=== PATIENT | male | born 1960 | race Caucasian/White ===

== ENCOUNTER 2016-12-06 19:47 | Inpatient (IN) | payer OTHER ==
[~2016-12-06] VITALS: Ht 165.1 cm; Wt 86.7 kg
[2016-12-06 20:48] LABS: ADD SCAN DIFF NO
--- NOTE | 2016-12-06 20:48 | RADRPT ---
PROCEDURE: XR Chest. CLINICAL INDICATION: Shortness of breath. Cerebrovascular accident. TECHNIQUE: Single frontal view. COMPARISON: None. FINDINGS: The lungs are clear. The heart size is normal. There is no pleural effusion. There is no pneumothorax. IMPRESSION: 1. Normal chest radiograph. RPTAT: QQ .Hugo Donohue MD, MD Date Time Electronically viewed and signed by .Hugo Donohue MD, MD on 12/06/2016 20:48 .R/
[2016-12-06 20:50] LABS: BASOPHILS % 0.4 % (0.0-2.0); EOSINOPHILS % 10.6 % (0.0-7.0); HEMATOCRIT 42.6 % (42.0-52.0); HEMOGLOBIN 14.8 g/dl (14.0-18.0); LYMPHOCYTES # 3.3 10^3/ul (0.8-2.9); LYMPHOCYTES % 36.5 % (15.0-51.0); MEAN CORPUSCULAR HEMOGLOBIN 29.7 pg (29.0-33.0); MEAN CORPUSCULAR HGB CONC 34.7 g/dl (32.0-37.0); MEAN CORPUSCULAR VOLUME 85.5 fl (82.0-101.0); MEAN PLATELET VOLUME 10.6 fl (7.4-10.4); MONOCYTE # 0.6 10^3/ul (0.3-0.9); MONOCYTES % 6.8 % (0.0-11.0); NEUTROPHIL # 4.1 10^3/ul (1.6-7.5); NEUTROPHILS % 45.6 % (39.0-77.0); PLATELET COUNT 254 10^3/UL (140-415); RED BLOOD COUNT 4.98 10^6/ul (4.70-6.10); RED CELL DISTRIBUTION WIDTH 13.4 % (11.5-14.5)
[2016-12-06 20:59] LABS: POTASSIUM 3.1 mmol/L (3.5-5.1)
[2016-12-06 21:01] LABS: INR 0.94; PROTIME 12.6 Sec (12.2-14.2)
[2016-12-06 21:02] LABS: CREATININE 0.92 mg/dl (0.61-1.24); PARTIAL THROMBOPLASTIN TIME 25.8 Sec (25.0-35.0)
[2016-12-06] MEDS ORDERED: POTASSIUM CHLORIDE (SR) 20 MEQ TAB PO STA (21:12)
[2016-12-06 21:15] LABS: TROPONIN-I 0.018 ng/ml (0.00-0.12)
[2016-12-06] MEDS ORDERED: IODIXANOL LOCM 100 ML BTL ONE (21:19)
[2016-12-06] MEDS ORDERED: SOD CHLORIDE 0.9% 100 ML ONE (21:19)
[2016-12-06] MEDS ORDERED: SOD CHLORIDE 0.9% 1,000 ML IV ONE (21:28)
--- NOTE | 2016-12-06 21:52 | RADRPT ---
PROCEDURE: CT head, without contrast. CLINICAL INDICATION: Possible stroke. TECHNIQUE: Noncontrast CT examination of the head, with axial, sagittal and coronal reformatted im ages. Automated dose exposure control was employed. CTDI: 43.48 mGy and DLP: 720.23 mGy-cm. COMPARISON: None. FINDINGS: No acute hemorrhage. Subarachnoid spaces are substantially preserved and symmetric. Ventricles ar e unremarkable. Septum cava and vergae variants. No mass effect. Serna-white matter distinction is preserved without evident decreased attenuation t o suggest acute or recent infarct. Sinuses and osseous structures are unremarkable. IMPRESSION: No acute process in the head. RPTAT: UU Physician Rich Date Time Electronically viewed and signed by Physician Rich on 12/06/2016 21:52 RS/
--- NOTE | 2016-12-06 22:02 | ERA ---
ER Documentation Chief Complaint Date/Time DATE: 12/06/16 TIME: 21:54 Chief Complaint left sided numbness since 6 hours ago HPI 56-year-old male with a history of untreated hypertension and diabetes presenting with numbness in his right face, right upper extremity, and right lower extremity. He has some subjective weakness. His symptoms started around 2 PM. No difficulty speaking. No vision abnormalities. He denies fevers, chills, neck pain, neck stiffness, or recent illness. No chest pain, shortness of breath, abdominal pain, diaphoresis. ROS All systems reviewed and are negative except as per history of present illness. Medications Home Meds No Active Prescriptions or Reported Meds Allergies Allergies: Coded Allergies: No Known Allergy (Unverified , 12/06/16) PMhx/Soc History of Surgery: Yes (APPENDECTOMY) Hx Cardiac Disorders: Yes (HYPERTENSION) Hx Miscellaneous Medical Probl: Yes (Diabetes) Hx Alcohol Use: Yes (10 beers every weekend) Hx Substance Use: No Hx Tobacco Use: No Smoking Status: Never smoker FmHx Family History: No diabetes Physical Exam Vitals Vital Signs Date Time Temp Pulse Resp B/P Pulse Ox O2 Delivery O2 Flow Rate FiO2 12/06/16 22:16 81 18 174/118 100 Nasal Cannula 3.0 12/06/16 20:27 Nasal Cannula 3 12/06/16 20:06 98.6 93 20 216/129 98 Physical Exam Const: No apparent distress, well-appearing, nontoxic Head: Atraumatic Eyes: Normal Conjunctiva, PERRL, EOMI ENT: Normal External Ears, Nose and Mouth. Neck: Full range of motion..~ No meningismus. Resp: Clear to auscultation bilaterally Cardio: Regular rate and rhythm, no murmurs. 2+ pulses distally, equal bilaterally Abd: Soft, non tender, non distended. Normal bowel sounds Skin: No petechiae or rashes Back: No midline or flank tenderness Ext: No cyanosis, or edema Neuro: M/S: Alert and oriented Face: EOMI, face and pharynx with normal sensation and function Motor: Normal strength throughout Sensation: Decreased sensation in the right upper extremity, right face, right lower extremity to painful stimuli, intact to light touch Speech: Normal Cerebel: Normal coordination Normal gait Normal finger to nose DTR: 2+ and symmetric upper/lower extremities Psych: Normal Mood and Affect Result Diagram: 12/06/16201912/06/162019 Results 24 hrs Laboratory Tests Test 12/06/16 20:20 12/06/16 20:49 White Blood Count 9.010^3/ul Red Blood Count 4.9810^6/ul Hemoglobin 14.8g/dl Hematocrit 42.6% Mean Corpuscular Volume 85.5fl Mean Corpuscular Hemoglobin 29.7pg Mean Corpuscular Hemoglobin Concent 34.7g/dl Red Cell Distribution Width 13.4% Platelet Count 29210^3/UL Mean Platelet Volume 10.6fl Neutrophils % 45.6% Lymphocytes % 36.5% Monocytes % 6.8% Eosinophils % 10.6% Basophils % 0.4% Nucleated Red Blood Cells % 0.0/100WBC Neutrophils # 4.110^3/ul Lymphocytes # 3.310^3/ul Monocytes # 0.610^3/ul Eosinophils # 1.010^3/ul Basophils # 0.010^3/ul Nucleated Red Blood Cells # 0.010^3/ul Prothrombin Time 12.6Sec Prothrombin Time Ratio 1.0 INR International Normalized Ratio 0.94 Activated Partial Thromboplast Time 25.8Sec Sodium Level 141mmol/L Potassium Level 3.1mmol/L Chloride Level 102mmol/L Carbon Dioxide Level 28mmol/L Anion Gap 14 Blood Urea Nitrogen 10mg/dl Creatinine 0.92mg/dl Glucose Level 283mg/dl Calcium Level 9.0mg/dl Troponin I 0.018ng/ml Bedside Glucose 235mg/dL Current Medications Medications (Trade) Dose Ordered Sig/Chelsey Route PRN Reason Start Time Stop Time Status Last Admin Dose Admin IV Flush 10 ml 10 ml STK-MED ONCE .ROUTE 12/06/16 21:19 12/06/16 21:20 DC Sodium Chloride (NS) 100 ml @ ud STK-MED ONCE .ROUTE 12/06/16 21:19 12/06/16 21:20 DC Iodixanol (Visipaque Locm) 100 ml STK-MED ONCE .ROUTE 12/06/16 21:19 12/06/16 21:20 DC Potassium Chloride 40 meq 40 meq ONCE STAT PO 12/06/16 21:12 12/06/16 21:22 DC 12/06/16 21:41 Sodium Chloride (NS) 1,000 ml @ 1,000 mls/hr Q1H ONCE IV 12/06/16 21:28 12/06/16 22:27 DC 12/06/16 21:42 Ondansetron HCl (Zofran Inj) 4 mg ER BRIDGE PRN IV NAUSEA AND/OR VOMITING 12/06/16 22:30 12/07/16 22:29 Acetaminophen (Tylenol Tab) 650 mg ER BRIDGE PRN PO MILD PAIN/FEVER 12/06/16 22:30 12/07/16 22:29 Procedures/MDM EMERGENT LABS AND DIAGNOSTIC STUDIES: Lab Results above were reviewed and interpreted by me. Labs showed hyperglycemia and hypokalemia 12-lead EKG #1 was interpreted by Catalino Hurt MD: Normal sinus rhythm at 98 bpm Left axis deviation Lateral T-wave abnormality, nonspecific QTC 464 No arrhythmia or evidence of STEMI. Lateral T-wave changes may be secondary to ischemia, but they are nonspecific 12-lead EKG #2 was interpreted by Catalino Hurt MD: Normal sinus rhythm Left axis deviation Lateral T-wave abnormality, nonspecific No arrhythmia or evidence of STEMI. Lateral T-wave changes may be secondary to ischemia, but they are nonspecific Radiology Results as interpreted by Radiology below were reviewed by Denny Hurt MD: Chest x-ray: No acute abnormalities CT brain:No acute process in the head. CTA Brain/Neck: No acute abnormalities per radiology Initial Nursing notes reviewed. Previous Medical Records requested via the Electronic Health Record. EMERGENCY DEPARTMENT COURSE / MEDICAL DECISION MAKING: Patient's neurologic symptoms are concerning for acute TIA/stroke, infectious, or metabolic cause and will require inpatient workup and continuous monitoring. I have a low suspicion for large vessel occlusion. He is not a TPA candidate. There is no evidence of intracranial hemorrhage. I do not suspect aortic or carotid dissection. His blood pressure is elevated but there is no evidence of hypertensive emergency. Further w/u for will be deferred to the inpatient team. Neuro Critical Care: Critical Care Time: 30 minutes Treatments/Evaluations: Continuous neurologic and cardiovascular monitoring for deterioration of neurologic function and complications, while obtaining immediate neurologic imaging. Considerations made for TPA and invasive therapy with discussions with family. TPA Criteria Assessment: Patient is not a TPA candidate because: Last known normal > 3 hours Accepting Care Team: Current data and ongoing care discussed. Time: Time of admission Primary Provider: Carrillo Consulting: none Outstanding Data: none Departure Diagnosis: Primary Impression: Paresthesia of right upper extremity Additional Impressions: Right leg paresthesias Hypertension Qualified Code: I15.9 - Secondary hypertension Hyperglycemia due to type 2 diabetes mellitus Qualified Code: E11.65 - Type 2 diabetes mellitus with hyperglycemia, without long-term current use of insulin Hypokalemia Condition: Serious MARIA HURT MD Dec 06, 2016 22:02
--- NOTE | 2016-12-06 22:13 | RADRPT ---
PROCEDURE: CTA head and neck. CLINICAL INDICATION: Focal neurologic deficit. TECHNIQUE: Direct spiral 0.63 mm axial sections were obtained through the cervical and intracrania l vasculature with the use of 100 cc of Visipaque 320 nonionic intravenous contrast material. Axial MIP, coronal, and sagittal reformations were obtained. The images were reviewed on a PACS workstati on. CTDIvol: 74.25, 18.64 mGy. DLP: 734.14 mGy-cm. COMPARISON: Brain CT performed earlier on the same date. FINDINGS: CTA neck: The right brachiocephalic and left common carotid arteries share a common origin of the ao rtic arch, a normal anatomic variant. The bilateral cervical carotid and vertebral arteries are wid logan patent. The left vertebral artery is dominant. No dissection or aneurysm is identified. CTA head: The bilateral ICAs, bilateral ACAs, bilateral MCAs, and left VARNISH DIPPER are widely patent. Mild focal narrowing of the left P2 segment is noted. The vertebrobasilar system is patent. The visuali zed cerebellar arteries are unremarkable. No intracranial aneurysm or vascular malformation is seen . IMPRESSION: 1. No significant stenosis or occlusion of the major cervical and intracranial arteries. 2. No dissection, aneurysm, or vascular malformation. Measurements of cervical internal carotid artery stenosis were performed according to NASCET criteri a, with reference to distal ICA diameter. Critical Results were called to Dr. Hurt at 10:08 p.m. on 12/06/2016. RPTAT: HTAR .Bashir Nevarez MD, Date Time Electronically viewed and signed by .Bashir Nevarez MD, MD on 12/06/2016 22:13 .R/
[2016-12-06] MEDS ORDERED: ONDANSETRON 4 MG INJ IV PRN (22:30)
[2016-12-06] MEDS ORDERED: ACETAMINOPHEN 325 MG TAB PO PRN (22:30)
[2016-12-06 23:25] VITALS: TEMP 98.6
[2016-12-06 23:35] VITALS: BP 193/115; PULSE 79; RESP 20; Ht 165.1 cm; Wt 86.7 kg
[2016-12-07] VITALS (10 sets, daily range): BP systolic 179–195; BP diastolic 111–114; PULSE 66–76; RESP 18–20
[2016-12-07] MEDS ORDERED: ONDANSETRON 4 MG INJ IV PRN (01:00)
[2016-12-07] MEDS ORDERED: ACETAMINOPHEN 325 MG TAB PO PRN (01:00)
[2016-12-07] MEDS ORDERED: INSULIN ASPART [NOVOLOG] 3 ML PEN SC ONE (01:30)
[2016-12-07] MEDS ORDERED: GLUCAGON 1 MG INJ IM PRN (01:30)
[2016-12-07] MEDS ORDERED: GLUCOSE GEL 15 GRAM TUBE PO PRN ×2 (01:30)
[2016-12-07] MEDS ORDERED: GLUCOSE GEL 15 GRAM TUBE BUCCAL PRN (01:30)
[2016-12-07] MEDS ORDERED: DEXTROSE 50% 50 ML SYRINGE IV PRN ×2 (01:30)
[2016-12-07] MEDS: ACCU-CHEK XX SCH (02:00)
[2016-12-07 07:44] LABS: ADD SCAN DIFF NO
[2016-12-07 07:51] LABS: BASOPHILS % 0.4 % (0.0-2.0); EOSINOPHILS # 1.3 10^3/ul (0.0-0.5); EOSINOPHILS % 14.1 % (0.0-7.0); HEMATOCRIT 41.2 % (42.0-52.0); LYMPHOCYTES # 2.4 10^3/ul (0.8-2.9); LYMPHOCYTES % 24.9 % (15.0-51.0); MEAN CORPUSCULAR HEMOGLOBIN 29.4 pg (29.0-33.0); MEAN CORPUSCULAR VOLUME 86.6 fl (82.0-101.0); MEAN PLATELET VOLUME 10.2 fl (7.4-10.4); MONOCYTE # 0.6 10^3/ul (0.3-0.9); MONOCYTES % 6.4 % (0.0-11.0); NEUTROPHIL # 5.1 10^3/ul (1.6-7.5); NEUTROPHILS % 53.9 % (39.0-77.0); PLATELET COUNT 235 10^3/UL (140-415); RED BLOOD COUNT 4.76 10^6/ul (4.70-6.10); RED CELL DISTRIBUTION WIDTH 13.4 % (11.5-14.5); WHITE BLOOD COUNT 9.5 10^3/ul (4.8-10.8)
[2016-12-07 08:16] LABS: ALBUMIN 3.5 g/dl (3.3-4.9)
[2016-12-07 08:17] LABS: POTASSIUM 3.4 mmol/L (3.5-5.1)
[2016-12-07 08:19] LABS: BILIRUBIN,INDIRECT 0.6 mg/dl (0-1.1); BILIRUBIN,TOTAL 0.6 mg/dl (0.2-1.3); CREATININE 0.71 mg/dl (0.61-1.24)
[2016-12-07 08:20] LABS: ALBUMIN/GLOBULIN RATIO 1.16; CALCIUM 8.5 mg/dl (8.4-10.2); TOTAL PROTEIN 6.5 g/dl (6.1-8.1)
[2016-12-07] MEDS: ASPIRIN (EC) 81 MG TAB PO SCH (08:27)
[2016-12-07] MEDS: ENOXAPARIN 40 MG/0.4 ML SYG SC SCH (08:28)
[2016-12-07] MEDS: INSULIN ASPART [NOVOLOG] 3 ML PEN SC SCH ×4 (08:29→20:24)
--- NOTE | 2016-12-07 11:16 | HP ---
Date/Time of Note Date/Time of Note DATE: 12/07/16 TIME: 11:08 Assessment/Plan VTE Prophylaxis VTE Prophylaxis Intervention: heparin Lines/Catheters IV [facility]ter Type (from [facility]): [facility] Urinary Cath still in place: No Assessment/Plan Assessment/Plan 1. TIA vs acute CVA - Aspirin, statin, and subq Heparin - CT head and CTA of neck were neg. Will obtain MRI of the brain - Neurology consult will be placed - PT eval and speech/swallow Eval - Will check Fasting lipids and A1c 2. Hypertensive Urgency - Will allow permissive HTN for 24 hrs (until tonight) and will not treat BP unless it is > 220/120 3. Diabetes with Hyperglycemia - Insulin while in house - will f/u A1c result HPI/ROS Admit Date/Time Admit Date/Time Dec 06, 2016 at 22:13 Hx of Present Illness 56-year-old male with a history of untreated hypertension and diabetes presenting with numbness in his right face, right upper extremity, and right lower extremity. He has some subjective weakness. His symptoms started around 2 PM. No difficulty speaking. No vision abnormalities. He denies fevers, chills, neck pain, neck stiffness, or recent illness. No chest pain, shortness of breath, abdominal pain, diaphoresis. PMH/Family/Social Social History Smoking Status: Never smoker Exam/Review of Systems Vital Signs Vitals Vital Signs Date Time Temp Pulse Resp B/P Pulse Ox O2 Delivery O2 Flow Rate FiO2 12/07/16 08:11 73 12/07/16 04:00 98.4 20 180/112 98 Room Air 12/06/16 23:25 3.0 Exam Constitutional: alert, oriented, well developed Head: atraumatic, normocephalic Eyes: EOMI, PERRL Respiratory: clear to auscultation, normal air movement Cardiovascular: nl pulses, regular rate and rhythm Gastrointestinal: non-tender, soft Extremities: normal pulses Neurological: other (slight decreased sensation in right side of face and right leg. Strength is intact in both upper and lower ext) Labs Result Diagram: 12/07/1633 12/07/16632 Medications Medications Current Medications Aspirin (Halfprin) 81 mg DAILY PO Last administered on 12/07/16t 08:27; Admin Dose 81 MG; Start 12/07/16 at 09:00 Atorvastatin Calcium (Lipitor) 10 mg HS PO ; Start 12/07/16 at 21:00 Acetaminophen (Tylenol Tab) 650 mg Q6H PRN PO PAIN AND OR ELEVATED TEMP; Start 12/07/16 at 01:00 Ondansetron HCl (Zofran Inj) 4 mg Q6H PRN IV NAUSEA AND/OR VOMITING; Start 12/07 at 01:00 Insulin Glargine (Lantus) 12 unit DAILY@20 SC ; Start 12/07/16 at 20:00 Diagnostic Test (Pha) (Accu-Chek) 1 ea 02 XX ; Start 12/07/16 at 02:00 Miscellaneous Information 1 ea NOTE XX ; Start 12/07/16 at 01:30 Glucose (Glutose) 15 gm Q15M PRN PO DECREASED GLUCOSE; Start 12/07/16 at 01:30 Glucose (Glutose) 22.5 gm Q15M PRN PO DECREASED GLUCOSE; Start 12/07/16 at 01:30 Dextrose (D50w Syringe) 25 ml Q15M PRN IV DECREASED GLUCOSE; Start 12/07/16 at 01:30 Dextrose (D50w Syringe) 50 ml Q15M PRN IV DECREASED GLUCOSE; Start 12/07/16 at 01:30 Glucagon (Glucagen) 1 mg Q15M PRN IM DECREASED GLUCOSE; Start 12/07/16 at 01:30 Glucose (Glutose) 15 gm Q15M PRN BUCCAL DECREASED GLUCOSE; Start 12/07/16 at 01: 30 Enoxaparin Sodium (Lovenox) 40 mg DAILY SC Last administered on 12/07/16t 08:28 ; Admin Dose 40 MG; Start 12/07/16 at 09:00 AMADOU JOHNSON MD Dec 07, 2016 11:16
--- NOTE | 2016-12-07 15:35 | CONS ---
DATE OF ADMISSION: 12/06/2016 DATE OF CONSULTATION: 12/07/2016 TYPE OF CONSULTATION: Neurology. Thank you for your kind referral for evaluation of acute stroke. HISTORY OF PRESENT ILLNESS: The patient is a 56-year-old gentleman with hypertension and diabetes, not on any medications, who presented with right-sided numbness and weakness of the right upper extr emity since midday yesterday, relatively stable since that time. He had a CT angiogram done within normal limits. CAT scan of the head also was read as normal. LABORATORIES: His labs show essentially normal CBC. Comprehensive metabolic panel within normal li mits. Hemoglobin A1c 8.3. Normal PT, PTT. Cholesterol 160, LDL 107. The patient denies any problem swallowing. MEDICATIONS: He is on: 1. Insulin . 2. Aspirin. 3. Lovenox for DVT prevention. 4. Lipitor 10 mg. EKG shows normal sinus rhythm. REVIEW OF SYSTEMS: All pertinent positives include the above history of present illness. PHYSICAL EXAMINATION: VITAL SIGNS: Temperature 98.2, pule 85, respirations 18, blood pressure 179/111. GENERAL: Not in acute distress, lying in bed. HEENT: Normocephalic, atraumatic head. NECK: No carotid bruits. No thyromegaly. LUNGS: Clear to auscultation bilaterally. CARDIAC: Normal cardiac rhythm and sounds. ABDOMEN: Soft, nontender. EXTREMITIES: No cyanosis, clubbing or edema. NEUROLOGIC: He is awake, alert, and oriented x3 with fluent speech. Cranial nerve examination show s intact visual quach bilaterally. Pupils reactive from 3 to 2 mm bilaterally. Extraocular moveme nts intact without nystagmus. Symmetrical face. Preserved facial strength. Diminished sensation o n the right hemiface. Tongue is in midline. Palate elevates symmetrically. Motor strength examina tion shows essentially normal strength on manual strength testing, though trace of pronator drift fe lt in the right upper extremity. Normal bulk and tone. Sensory examination shows diminution of per ception of light touch and pinprick on the right. Deep tendon reflexes 2+ upper extremities and kne es, absent ankle jerks. Downgoing toes bilaterally. Coordination preserved on [id number]-ai-jwqztk gissell ting. No dysmetria or tremor. Gait was not assessed. IMPRESSION: Acute ischemic stroke, likely lacunar type. Echocardiogram and MRI of the brain was re quested already. We will continue aspirin, keep patient euglycemic. It is okay to allow elevated b lood pressure in the first 1 to 2 days after acute stroke, then gradually obtain control. In the fi rst few days, pressure could be allowed as high as 220/120. I will increase his dose of Lipitor to a dose of 80 mg at bedtime. Physical therapy evaluation was already requested. Thank you very much for this interesting consultation. Dictated By: HEMANTH NGUYEN/JACQUELINE Conf#: [id number] DID#: [id number]
[2016-12-07] MEDS: INSULIN GLARGINE [LANtus] 3 ML PEN SC SCH (20:24)
[2016-12-07] MEDS: ATORVASTATIN 80 MG TAB PO SCH (20:25)
[2016-12-07] MEDS ORDERED: ATORVASTATIN 10 MG TAB PO SCH (21:00)
[2016-12-08] VITALS (12 sets, daily range): BP systolic 150–207; BP diastolic 70–139; PULSE 61–95; RESP 18–20
[2016-12-08] MEDS: ACCU-CHEK XX SCH (02:12)
[2016-12-08 08:00] LABS: ADD SCAN DIFF NO
[2016-12-08 08:05] LABS: BASOPHILS % 0.3 % (0.0-2.0); EOSINOPHILS # 1.2 10^3/ul (0.0-0.5); EOSINOPHILS % 13.2 % (0.0-7.0); HEMOGLOBIN 15.5 g/dl (14.0-18.0); LYMPHOCYTES # 2.8 10^3/ul (0.8-2.9); LYMPHOCYTES % 31.1 % (15.0-51.0); MEAN CORPUSCULAR HEMOGLOBIN 29.3 pg (29.0-33.0); MEAN CORPUSCULAR HGB CONC 33.7 g/dl (32.0-37.0); MEAN PLATELET VOLUME 10.5 fl (7.4-10.4); MONOCYTE # 0.6 10^3/ul (0.3-0.9); MONOCYTES % 7.1 % (0.0-11.0); NEUTROPHIL # 4.3 10^3/ul (1.6-7.5); NEUTROPHILS % 48.1 % (39.0-77.0); PLATELET COUNT 269 10^3/UL (140-415); RED BLOOD COUNT 5.29 10^6/ul (4.70-6.10); RED CELL DISTRIBUTION WIDTH 13.3 % (11.5-14.5)
[2016-12-08 08:22] LABS: POTASSIUM 3.6 mmol/L (3.5-5.1)
[2016-12-08 08:24] LABS: CREATININE 0.75 mg/dl (0.61-1.24)
[2016-12-08 08:25] LABS: CALCIUM 9.1 mg/dl (8.4-10.2)
[2016-12-08] MEDS: ASPIRIN (EC) 81 MG TAB PO SCH (08:47)
[2016-12-08] MEDS: INSULIN ASPART [NOVOLOG] 3 ML PEN SC SCH ×5 (08:52→21:00)
[2016-12-08] MEDS: ENOXAPARIN 40 MG/0.4 ML SYG SC SCH (08:53)
--- NOTE | 2016-12-08 15:01 | RADRPT ---
Echocardiogram Report Patient Name: DARLIN MAK Gender: Male Date: 1960 Study Date: 08-Dec-2016 Rn Ante Partum: Alka Newman [facility] Location: 5559 Ref. Physician: AMADOU JOHNSON Quality: Good Procedures: Transthoracic echocardiogram with complete 2D, M-Mode, and doppler examination. Indications: stroke. 2D/M Mode Doppler Measurement Value Normal Ranges Measurement Value Normal Ranges LVIDd 2D 5.0 3.5 - 5.6 cm AV Peak Grover 0.9 m/sec LVIDs 2D 3.6 2.1 - 4.1 cm AV Peak PG 3.1 mmHg LVPWd 2D 1.0 0.6 - 1.1 cm LVOT Peak Grover 0.5 m/sec IVSd 2D 1.0 0.6 - 1.1 cm LVOT Peak PG 1.2 mmHg AoR Diam 2D 3.2 2.0 - 3.7 cm MV E Peak Grover 1.0 m/sec EDV 2D 119.4 cm3 MV A Peak Grover 0.3 m/sec ESV 2D 46.2 cm3 MV E/A 3.5 LA Dimen 2D 3.4 2.3 - 4.0 cm MV Decel Time 143 msec MV Decel Scott 7 MV E/A 3.5 Findings Left Ventricle: Normal left ventricular cavity size. Left ventricular wall thickness upper limits of normal. Moderate global left ventricular systolic dysfunction. Ejection fraction is visually estimated at 4045 %. Tissue Doppler/Mitral Doppler indices are consistent with restrictive physiology with markedly elevated left atrial pressure (Stage IIIIV diastolic dysfunction). Right Ventricle: Normal right ventricular size. Normal right ventricular systolic function. Left Atrium: The left atrium is normal in size. Right Atrium: The right atrium is normal in size. Mitral Valve: Mitral valve leaflets appear mildly thickened. Mild mitral annular calcification. Mild mitral valve regurgitation. Aortic Valve: Normal appearance of the aortic valve. No significant aortic stenosis or insufficiency. Tricuspid Valve: Normal appearance of the tricuspid valve. Unable to obtain RVSP due to minimal presence of tricuspid regurgitation. Pulmonic Valve: Normal pulmonic valve appearance. Pericardium: Normal pericardium with no significant pericardial effusion. Aorta: Normal aortic root. IVC: Dilated IVC without respiratory collapse consistent with elevated right atrial pressure. Conclusions 1.The left ventricle is normal in size with moderately reduced systolic function. There is global hypokinesis. 2.Estimated left ventricular ejection fraction of 40-45%. Electronically Signed By: Kerwin Hannah 08-Dec-2016 15:00: Patient Name: DARLIN MAK Study Date: 08-Dec-2016 [id number]
[2016-12-08] MEDS: hydrALAzine 20 MG INJ IV PRN ×2 (15:31→18:44)
[2016-12-08] MEDS: LISINOPRIL 10 MG TAB PO SCH (16:00)
--- NOTE | 2016-12-08 18:24 | RADRPT ---
PROCEDURE: MRI Brain without contrast. CLINICAL INDICATION: Stroke TECHNIQUE: Multiplanar MRI of the brain without contrast was performed on a 3.0 T scanner with the following sequences obtained: T1-weighted, T2-weighted/FLAIR, diffusion weighted (with ADC map), GR E. COMPARISON: CT brain 12/06/2016 FINDINGS: There is a small focus of restricted diffusion with associated increased T2-weighted FLAIR signal i ntensity in the left thalamus, compatible with an acute lacunar infarct. No intracranial hemorrhage - blood degradation products are identified. No extra-axial fluid collection is seen. There is no mass effect. No midline shift is identified. The ventricles and sulci are within normal limits for size and configuration. Incidental note is mad e of a cavum septum pellucidum. Minimal areas of increased T2 / FLAIR signal intensity are present in the periventricular and deep w carley matter, nonspecific but likely related to chronic small vessel ischemic changes. Flow voids are identified in the proximal intracranial arteries and dural sinuses suggesting patency . Small to moderate right maxillary sinus mucous retention cyst is seen. IMPRESSION: 1. Acute left thalamic lacunar infarct. 2. Minimal chronic small vessel ischemic changes. Results called to Maribel Fields RN at 05:12 p.m., 12/08/2016. RPTAT: VV .Justice Maciel MD, Date Time Electronically viewed and signed by .Justice Maciel MD, on 12/08/2016 18:24 .O/
[2016-12-08] MEDS: ATORVASTATIN 80 MG TAB PO SCH (22:05)
[2016-12-08] MEDS: FAMOTIDINE 20 MG TAB PO SCH (22:05)
[2016-12-08] MEDS: METOPROLOL 25 MG TAB PO SCH (22:06)
[2016-12-08] MEDS: INSULIN GLARGINE [LANtus] 3 ML PEN SC SCH (22:12)
[2016-12-09] VITALS (12 sets, daily range): BP systolic 136–178; BP diastolic 82–104; PULSE 56–86; RESP 18–20
[2016-12-09] MEDS: ACCU-CHEK XX SCH (02:00)
[2016-12-09] MEDS: hydrALAzine 20 MG INJ IV PRN (06:10)
[2016-12-09 07:20] LABS: ADD SCAN DIFF NO
[2016-12-09 07:24] LABS: BASOPHILS % 0.4 % (0.0-2.0); EOSINOPHILS # 1.3 10^3/ul (0.0-0.5); EOSINOPHILS % 13.5 % (0.0-7.0); HEMATOCRIT 45.5 % (42.0-52.0); HEMOGLOBIN 15.3 g/dl (14.0-18.0); LYMPHOCYTES # 2.4 10^3/ul (0.8-2.9); LYMPHOCYTES % 25.5 % (15.0-51.0); MEAN CORPUSCULAR HEMOGLOBIN 28.9 pg (29.0-33.0); MEAN CORPUSCULAR HGB CONC 33.6 g/dl (32.0-37.0); MEAN CORPUSCULAR VOLUME 85.8 fl (82.0-101.0); MEAN PLATELET VOLUME 10.6 fl (7.4-10.4); MONOCYTE # 0.8 10^3/ul (0.3-0.9); MONOCYTES % 8.2 % (0.0-11.0); NEUTROPHIL # 4.9 10^3/ul (1.6-7.5); NEUTROPHILS % 52.2 % (39.0-77.0); PLATELET COUNT 268 10^3/UL (140-415); RED CELL DISTRIBUTION WIDTH 13.6 % (11.5-14.5); WHITE BLOOD COUNT 9.3 10^3/ul (4.8-10.8)
--- NOTE | 2016-12-09 07:27 | PN ---
DATE: 12/08/2016 SUBJECTIVE DATA: Complains of right upper extremity paresthesias. Blood pressure running on the higher side. Denies any headache. Denies any chest pain. OBJECTIVE DATA: VITAL SIGNS: Temperature 98.0, pulse rate 94, respiratory rate 19, blood pressure 150/86, oxygen saturation 98% on room air. GENERAL: This is an obese male lying in bed in no apparent distress. HEENT: Head normocephalic and atraumatic. Eyes: Anicteric sclerae. Conjunctivae clear. ENT: Nasal septum is midline. Oral mucosa is dry. NECK: Supple. No JVD noticed. RESPIRATORY: Bilaterally clear to auscultation. No adventitious breath sounds heard. No use of accessory muscles of respiration. CARDIAC: Regular rate and rhythm. No murmurs. ABDOMEN: Soft, nontender and nondistended. Bowel sounds positive in all 4 quadrants. GENITOURINARY: Deferred. EXTREMITIES: No cyanosis. Peripheral pulses palpable. NEUROLOGIC: The patient is awake, alert and oriented. No focal deficits. LABORATORY AND DIAGNOSTIC DATA: WBC 10.0, hemoglobin 15.5, hematocrit 46.0, platelet count 269. Sodium 140, potassium 3.6, chloride 102, carbon dioxide 30 , anion gap 12, BUN 16, creatinine 0.75, glucose 180, calcium 9.1. ASSESSMENT AND PLAN: 1. Right upper extremity paresthesia. Transient ischemic attack versus cerebrovascular accident. Brain CT scan negative for any acute intracranial findings. Pending brain MRI. The patient was seen and evaluated by neurology. Continue aspirin and statin. 2. Type 2 diabetes mellitus. Hemoglobin A1c 8.3. Continue sliding scale insulin along with basal insulin. Will also start the patient on premeal insulin. 3. Accelerated hypertension. The patient will be started on routine antihypertensives and the patient's blood pressure will be lowered gradually to obtain optimum blood pressure control. 4. Cardiomyopathy. Ejection fraction of 40% to 45%. Etiology unclear. Will start the patient on WILVER inhibitors. 5. Dyslipidemia. Suboptimal LDL. Continue statins. 6. Obesity. Weight reduction will be advised. 7. Fluid, electrolytes and nutrition. Carbohydrate controlled low cholesterol diet. 8. Deep venous thrombosis prophylaxis. Subcutaneous Lovenox. 9. Gastrointestinal prophylaxis. Histamine 2 blockers. PLAN: Start antihypertensives. Await brain MRI. Case discussed with Dr. Whaley. The plan of care was explained to the patient's daughter who was at the bedside. ALFIE WHALEY MD, AM/JACQUELINE Conf#: [id number] DID#: [id number]
[2016-12-09] MEDS: FAMOTIDINE 20 MG TAB PO SCH ×2 (07:51→20:55)
[2016-12-09] MEDS: INSULIN ASPART [NOVOLOG] 3 ML PEN SC SCH ×7 (07:51→20:58)
[2016-12-09] MEDS: ASPIRIN (EC) 81 MG TAB PO SCH (07:51)
[2016-12-09 07:52] LABS: POTASSIUM 3.5 mmol/L (3.5-5.1)
[2016-12-09] MEDS: METOPROLOL 25 MG TAB PO SCH (07:52)
[2016-12-09] MEDS: LISINOPRIL 10 MG TAB PO SCH (07:53)
[2016-12-09 07:55] LABS: CREATININE 0.67 mg/dl (0.61-1.24)
[2016-12-09 07:56] LABS: CALCIUM 9.3 mg/dl (8.4-10.2)
[2016-12-09] MEDS: ENOXAPARIN 40 MG/0.4 ML SYG SC SCH (08:01)
--- NOTE | 2016-12-09 16:01 | PN ---
Date/Time of Note Date/Time of Note DATE: 12/09/16 TIME: 15:58 Assessment/Plan VTE Prophylaxis VTE Prophylaxis Intervention: LMWH Lines/Catheters IV C[facility]ter Type (from [facility]): Saline Lock Urinary Cath still in place: No Assessment/Plan Chief Complaint/Hosp Course 1. Acute left thalamic lacunar infarct. Continue aspirin, statins, and antihypertensives. Status post evaluation by neurology. Continue physical therapy and Occupational Therapy. 2. Type 2 diabetes mellitus. Hemoglobin A1c 8.3. Continue sliding scale insulin along with basal insulin. Will order diabetes education evaluation and dietary evaluation. 3. Accelerated hypertension. Continue antihypertensives. Adjust antihypertensives to obtain optimal blood pressure control. 4. Cardiomyopathy. Ejection fraction of 40% to 45%. Etiology unclear. Continue beta-blockers and WILVER inhibitors. 5. Dyslipidemia. Suboptimal LDL. Continue statins. 6. Obesity. Weight reduction will be advised. Dietary consult. 7. Fluid, electrolytes and nutrition. Carbohydrate controlled, low cholesterol diet. 8. Deep venous thrombosis prophylaxis. Subcutaneous Lovenox. 9. Gastrointestinal prophylaxis. Histamine 2 blockers. PLAN: Adjust antihypertensives to obtain optimal blood pressure control. Adjust insulin to obtain optimal blood sugar control. Obtain dietary and diabetes education consult. Obtain occupational therapy consult. The plan of care was explained to the patient's daughter over the phone. Case discussed with Dr. Grewal. Problems: Subjective 24 Hr Interval Summary Free Text/Dictation Complains of right upper extremity numbness. Blood pressure running on the higher side. Exam/Review of Systems Vital Signs Vitals Vital Signs Date Time Temp Pulse Resp B/P Pulse Ox O2 Delivery O2 Flow Rate FiO2 12/09/16 12:13 97.9 73 18 175/91 97 12/07/16 04:00 Room Air 12/06/16 23:25 3.0 Intake and Output 12/08/16 12/08/16 12/09/16 15:00 23:00 07:00 Intake Total 950 ml Balance 950 ml Exam GENERAL: This is an obese male lying in bed in no apparent distress. HEENT: Head normocephalic and atraumatic. Eyes: Anicteric sclerae. Conjunctivae clear. ENT: Nasal septum is midline. Oral mucosa is dry. NECK: Supple. No JVD noticed. RESPIRATORY: Bilaterally clear to auscultation. No adventitious breath sounds heard. No use of accessory muscles of respiration. CARDIAC: Regular rate and rhythm. No murmurs. ABDOMEN: Soft, nontender and nondistended. Bowel sounds positive in all 4 quadrants. GENITOURINARY: Deferred. EXTREMITIES: No cyanosis. Peripheral pulses palpable. NEUROLOGIC: The patient is awake, alert and oriented. No focal deficits. Results Result Diagram: 12/09/16 0630 12/09/16 0630 Results 24 hrs Laboratory Tests Test 12/08/16 17:13 12/08/16 22:02 12/09/16 06:30 12/09/16 07:44 Bedside Glucose 145 176 140 White Blood Count 9.3 Red Blood Count 5.30 Hemoglobin 15.3 Hematocrit 45.5 Mean Corpuscular Volume 85.8 Mean Corpuscular Hemoglobin 28.9 L Mean Corpuscular Hemoglobin Concent 33.6 Red Cell Distribution Width 13.6 Platelet Count 268 Mean Platelet Volume 10.6 H Neutrophils % 52.2 Lymphocytes % 25.5 Monocytes % 8.2 Eosinophils % 13.5 H Basophils % 0.4 Nucleated Red Blood Cells % 0.0 Neutrophils # 4.9 Lymphocytes # 2.4 Monocytes # 0.8 Eosinophils # 1.3 H Basophils # 0.0 Nucleated Red Blood Cells # 0.0 Sodium Level 139 Potassium Level 3.5 Chloride Level 106 Carbon Dioxide Level 26 Anion Gap 11 Blood Urea Nitrogen 15 Creatinine 0.67 Glucose Level 149 Calcium Level 9.3 Magnesium Level 2.0 Test 12/09/16 11:49 Bedside Glucose 233 H Medications Medications Current Medications Aspirin (Halfprin) 81 mg DAILY PO Last administered on 12/09/16 07:51; Admin Dose 81 MG; Start 12/07/16 at 09:00 Acetaminophen (Tylenol Tab) 650 mg Q6H PRN PO PAIN AND OR ELEVATED TEMP; Start 12/07/16 at 01:00 Ondansetron HCl (Zofran Inj) 4 mg Q6H PRN IV NAUSEA AND/OR VOMITING; Start 12/07 at 01:00 Diagnostic Test (Pha) (Accu-Chek) 1 ea 02 XX Last administered on 12/08/16 02: 12; Admin Dose 1 EA; Start 12/07/16 at 02:00 Miscellaneous Information 1 ea NOTE XX ; Start 12/07/16 at 01:30 Glucose (Glutose) 15 gm Q15M PRN PO DECREASED GLUCOSE; Start 12/07/16 at 01:30 Glucose (Glutose) 22.5 gm Q15M PRN PO DECREASED GLUCOSE; Start 12/07/16 at 01:30 Dextrose (D50w Syringe) 25 ml Q15M PRN IV DECREASED GLUCOSE; Start 12/07/16 at 01:30 Dextrose (D50w Syringe) 50 ml Q15M PRN IV DECREASED GLUCOSE; Start 12/07/16 at 01:30 Glucagon (Glucagen) 1 mg Q15M PRN IM DECREASED GLUCOSE; Start 12/07/16 at 01:30 Glucose (Glutose) 15 gm Q15M PRN BUCCAL DECREASED GLUCOSE; Start 12/07/16 at 01: 30 Enoxaparin Sodium (Lovenox) 40 mg DAILY SC Last administered on 12/09/16 08:01 ; Admin Dose 40 MG; Start 12/07/16 at 09:00 Atorvastatin Calcium (Lipitor) 80 mg DAILY@21 PO Last administered on 12/08/16 22:05; Admin Dose 80 MG; Start 12/07/16 at 21:00 Hydralazine HCl (Apresoline) 10 mg Q6H PRN IV SBP>180 Last administered on 06:10; Admin Dose 10 MG; Start 12/08/16 at 15:00 Lisinopril (Zestril) 10 mg DAILY PO Last administered on 12/09/16 07:53; Admin Dose 10 MG; Start 12/08/16 at 16:00 Famotidine (Pepcid) 20 mg BID PO Last administered on 12/09/16 07:51; Admin Dose 20 MG; Start 12/08/16 at 21:00 Metoprolol Tartrate (Lopressor) 50 mg BID PO ; Start 12/09/16 at 21:00 Insulin Glargine (Lantus) 14 unit DAILY@20 SC ; Start 12/09/16 at 20:00 ALFIE HORNE NP Dec 09, 2016 16:01
[2016-12-09] MEDS ORDERED: INSULIN GLARGINE [LANtus] 3 ML PEN SC SCH (20:00)
[2016-12-09] MEDS: METOPROLOL 50 MG TAB PO SCH (20:55)
[2016-12-09] MEDS: ATORVASTATIN 80 MG TAB PO SCH (20:55)
--- NOTE | 2016-12-09 23:04 | CONS ---
Date/Time of Note Date/Time of Note DATE: 12/09/16 TIME: 23:02 Consult Date/Type/Reason Admit Date/Time Dec 08, 2016 at 13:48 Initial Consult Date Type of Consultation: neurology Subjective no acute events Objective Vital Signs Date Time Temp Pulse Resp B/P Pulse Ox O2 Delivery O2 Flow Rate FiO2 12/09/16 20:18 84 12/09/16 20:00 98.6 19 178/104 98 12/07/16 04:00 Room Air 12/06/16 23:25 3.0 Intake and Output 12/08/16 12/08/16 12/09/16 15:00 23:00 07:00 Intake Total 950 ml Balance 950 ml Results/Medications Result Diagram: 12/09/1630 12/09/16 0630 Results 24 hrs Laboratory Tests Test 12/09/16 06:30 12/09/16 07:44 12/09/16 11:49 12/09/16 17:25 White Blood Count 9.3 Red Blood Count 5.30 Hemoglobin 15.3 Hematocrit 45.5 Mean Corpuscular Volume 85.8 Mean Corpuscular Hemoglobin 28.9 L Mean Corpuscular Hemoglobin Concent 33.6 Red Cell Distribution Width 13.6 Platelet Count 268 Mean Platelet Volume 10.6 H Neutrophils % 52.2 Lymphocytes % 25.5 Monocytes % 8.2 Eosinophils % 13.5 H Basophils % 0.4 Nucleated Red Blood Cells % 0.0 Neutrophils # 4.9 Lymphocytes # 2.4 Monocytes # 0.8 Eosinophils # 1.3 H Basophils # 0.0 Nucleated Red Blood Cells # 0.0 Sodium Level 139 Potassium Level 3.5 Chloride Level 106 Carbon Dioxide Level 26 Anion Gap 11 Blood Urea Nitrogen 15 Creatinine 0.67 Glucose Level 149 Calcium Level 9.3 Magnesium Level 2.0 Bedside Glucose 140 233 H 170 Test 12/09/16 20:53 Bedside Glucose 235 H Medications Current Medications Aspirin (Halfprin) 81 mg DAILY PO Last administered on 12/09/16t 07:51; Admin Dose 81 MG; Start 12/07/16 at 09:00 Acetaminophen (Tylenol Tab) 650 mg Q6H PRN PO PAIN AND OR ELEVATED TEMP; Start 12/07/16 at 01:00 Ondansetron HCl (Zofran Inj) 4 mg Q6H PRN IV NAUSEA AND/OR VOMITING; Start 12/07 at 01:00 Diagnostic Test (Pha) (Accu-Chek) 1 ea 02 XX Last administered on 12/08/16 02: 12; Admin Dose 1 EA; Start 12/07/16 at 02:00 Miscellaneous Information 1 ea NOTE XX ; Start 12/07/16 at 01:30 Glucose (Glutose) 15 gm Q15M PRN PO DECREASED GLUCOSE; Start 12/07/16 at 01:30 Glucose (Glutose) 22.5 gm Q15M PRN PO DECREASED GLUCOSE; Start 12/07/16 at 01:30 Dextrose (D50w Syringe) 25 ml Q15M PRN IV DECREASED GLUCOSE; Start 12/07/16 at 01:30 Dextrose (D50w Syringe) 50 ml Q15M PRN IV DECREASED GLUCOSE; Start 12/07/16 at 01:30 Glucagon (Glucagen) 1 mg Q15M PRN IM DECREASED GLUCOSE; Start 12/07/16 at 01:30 Glucose (Glutose) 15 gm Q15M PRN BUCCAL DECREASED GLUCOSE; Start 12/07/16 at 01: 30 Enoxaparin Sodium (Lovenox) 40 mg DAILY SC Last administered on 12/09/16 08:01 ; Admin Dose 40 MG; Start 12/07/16 at 09:00 Atorvastatin Calcium (Lipitor) 80 mg DAILY@21 PO Last administered on 12/09/16 20:55; Admin Dose 80 MG; Start 12/07/16 at 21:00 Hydralazine HCl (Apresoline) 10 mg Q6H PRN IV SBP>180 Last administered on 06:10; Admin Dose 10 MG; Start 12/08/16 at 15:00 Lisinopril (Zestril) 10 mg DAILY PO Last administered on 12/09/16 07:53; Admin Dose 10 MG; Start 12/08/16 at 16:00 Famotidine (Pepcid) 20 mg BID PO Last administered on 12/09/16 20:55; Admin Dose 20 MG; Start 12/08/16 at 21:00 Metoprolol Tartrate (Lopressor) 50 mg BID PO Last administered on 12/09/16 20: 55; Admin Dose 50 MG; Start 12/09/16 at 21:00 Insulin Glargine (Lantus) 14 unit DAILY@20 SC Last administered on 12/09/16t 21: 11; Admin Dose 14 UNIT; Start 12/09/16 at 20:00 Assessment/Plan Chief Complaint/Hosp Course PHYSICAL EXAMINATION: GENERAL: Not in acute distress, lying in bed. HEENT: Normocephalic, atraumatic head. NECK: No carotid bruits. No thyromegaly. LUNGS: Clear to auscultation bilaterally. CARDIAC: Normal cardiac rhythm and sounds. ABDOMEN: Soft, nontender. EXTREMITIES: No cyanosis, clubbing or edema. NEUROLOGIC: He is awake, alert, and oriented x3 with fluent speech. Cranial nerve examination shows intact visual quach bilaterally. Pupils reactive from 3 to 2 mm bilaterally. Extraocular movements intact without nystagmus. Symmetrical face. Preserved facial strength. Diminished sensation on the right hemiface. Tongue is in midline. Palate elevates symmetrically. Motor strength examination shows essentially normal strength on manual strength testing, though ronator drift felt in the right upper extremity. Normal bulk and tone. Sensory examination shows diminution of perception of light touch and pinprick on the right. Deep tendon reflexes 2+ upper extremities and knees , absent ankle jerks. Downgoing toes bilaterally. Coordination preserved on [id number] testing. No dysmetria or tremor. Gait was not assessed. IMPRESSION: Acute ischemic stroke, lacunar type. Continue aspirin, lipitor, keep patient euglycemic, normotensive. PT/OT Problems: HEMANTH MAGANA MD Dec 09, 2016 23:04
[2016-12-10] VITALS (9 sets, daily range): BP systolic 135–186; BP diastolic 88–114; PULSE 60–71; RESP 18–20
[2016-12-10] MEDS: ACCU-CHEK XX SCH (02:00)
[2016-12-10 06:43] LABS: ADD SCAN DIFF NO
[2016-12-10 06:46] LABS: BASOPHILS % 0.3 % (0.0-2.0); EOSINOPHILS # 1.2 10^3/ul (0.0-0.5); EOSINOPHILS % 13.4 % (0.0-7.0); HEMATOCRIT 43.5 % (42.0-52.0); HEMOGLOBIN 14.3 g/dl (14.0-18.0); LYMPHOCYTES # 2.5 10^3/ul (0.8-2.9); LYMPHOCYTES % 28.6 % (15.0-51.0); MEAN CORPUSCULAR HEMOGLOBIN 28.9 pg (29.0-33.0); MEAN CORPUSCULAR HGB CONC 32.9 g/dl (32.0-37.0); MEAN CORPUSCULAR VOLUME 87.9 fl (82.0-101.0); MEAN PLATELET VOLUME 10.6 fl (7.4-10.4); MONOCYTE # 0.8 10^3/ul (0.3-0.9); MONOCYTES % 9.7 % (0.0-11.0); NEUTROPHIL # 4.1 10^3/ul (1.6-7.5); NEUTROPHILS % 47.8 % (39.0-77.0); PLATELET COUNT 265 10^3/UL (140-415); RED BLOOD COUNT 4.95 10^6/ul (4.70-6.10); RED CELL DISTRIBUTION WIDTH 13.8 % (11.5-14.5); WHITE BLOOD COUNT 8.6 10^3/ul (4.8-10.8)
[2016-12-10 07:06] LABS: POTASSIUM 3.9 mmol/L (3.5-5.1)
[2016-12-10 07:08] LABS: CREATININE 0.83 mg/dl (0.61-1.24)
[2016-12-10] MEDS: INSULIN ASPART [NOVOLOG] 3 ML PEN SC SCH ×4 (08:00→12:54)
[2016-12-10] MEDS: METOPROLOL 50 MG TAB PO SCH (08:39)
[2016-12-10] MEDS: FAMOTIDINE 20 MG TAB PO SCH (08:40)
[2016-12-10] MEDS: ASPIRIN (EC) 81 MG TAB PO SCH (08:40)
[2016-12-10] MEDS: LISINOPRIL 10 MG TAB PO SCH (08:40)
[2016-12-10] MEDS: ENOXAPARIN 40 MG/0.4 ML SYG SC SCH (08:42)
--- NOTE | 2016-12-10 11:29 | PDOCDIS ---
Discharge Instructions DIAGNOSIS Discharge Diagnosis: Acute ischemic stroke. CONDITION Patient Condition: Stable HOME CARE INSTRUCTIONS: Diet Instructions: Low Fat /CholesterolSpecial Diet: carbohydrate controlled FOLLOW UP/APPOINTMENTS Appointments Jake Rodriguez MD Specialty: Internal Medicine Office Address: [address] [place] [address] [place], [place] [id number] Office OTHER ORDERS: Other Orders: 1. Take medications as per prescription. 2. Follow a low-cholesterol, carbohydrate controlled diet. 3. Resume activities as tolerated. 4. Follow-up with your primary care physician in 2 weeks. If you do not have a primary care physician, please call Dr. Jake Rodriguez's office. 5. Please call 911 or go to the nearest emergency room if you have any chest pain, sudden onset of focal weakness, sudden onset of speech disturbances, or any other unusual signs/symptoms. ALFIE HORNE NP Dec 10, 2016 11:29
[2016-12-10] MEDS ORDERED: ASPI-664 PO (11:31)
[2016-12-10] MEDS ORDERED: LANT3I SC (11:31)
[2016-12-10] MEDS ORDERED: METO-429 PO (11:31)
[2016-12-10] MEDS ORDERED: 3N1 COMMODE MC (11:31)
[2016-12-10] MEDS ORDERED: METF500T PO (11:31)
[2016-12-10] MEDS ORDERED: NOVO3I SC (11:31)
[2016-12-10] MEDS ORDERED: ATOR80TA75 PO (11:31)
[2016-12-10] MEDS ORDERED: LISI10TA2 PO (11:31)
--- NOTE | 2016-12-10 16:21 | DS ---
DATE OF ADMISSION: 12/08/2016 DATE OF DISCHARGE: 12/10/2016 FINAL DIAGNOSES: 1. Acute left thalamic lacunar infarct. 2. Type 2 diabetes mellitus, uncontrolled. 3. Hypertensive urgency. 4. Cardiomyopathy. 5. Dyslipidemia. 6. Obesity. CONSULTATIONS: Dr. Martínez Hall, Neurology. HOSPITAL COURSE: This is a 56-year-old male with a past medical history of essential hypertension and diabetes mellitus who has been noncompliant with his medications and who came to the emergency room with sudden onset of numbness of the right face, right upper extremity, and right lower extremity. The patient also verbalized some subjective weakness. There was no difficulty in speech. There were no vision abnormalities. There was no chest pain or dyspnea, abdominal pain, or diaphoresis. The patient's blood pressure in the emergency room was noticed to be 216/129. Provided the patient's history of present illness and his comorbidities, a clinical decision was made to admit the patient to inpatient setting to have him further evaluated. The patient was admitted to inpatient telemetry floor. A neurology consult was obtained. The patient's sudden onset of right-sided weakness was extensively evaluated. The patient's brain CT scan that was done in the emergency room was negative for any acute intracranial findings. The patient underwent a neck CTA that showed no significant stenosis or occlusion of the major cervical intracranial arteries with no dissection, aneurysm, or vascular malformation. The patient subsequently underwent a brain MRI that showed acute left thalamic lacunar infarct with minimal chronic small vessel ischemic changes. Consequently, the patient was started on aspirin and statins. The patient was provided with permissive hypertension because of acute stroke before the patient 's blood pressure was tightly controlled. The patient was started on high dose statins. Physical therapy, occupational therapy, and speech therapy evaluations were ordered. The patient had no speech therapy needs. The patient did need occupational therapy and physical therapy continuously. Upon discharge, the patient will have physical therapy and occupational therapy evaluation at home. The patient underwent a 2D echocardiogram that showed ejection fraction of 40 to 45%. The etiology of this is unclear. The patient was started on beta blockers and WILVER inhibitors. The patient's blood pressure medications were adjusted to obtain optimal blood pressure control after the first 24 hours of acute stroke. The patient has underlying dyslipidemia. As mentioned earlier, the patient was started on high dose statins. The patient has obesity with a BMI of 31.8. The patient was a noticed to have uncontrolled blood sugars. The patient was noncompliant with his medications for diabetes at home. The patient was seen and evaluated by food taster as well as registered dietitian. The patient was taught on the use of blood sugar machine as well as to self-inject insulin. The patient had a stable hospital course. The patient was cleared by consultants to be discharged home. The patient will undergo the rest of physical and occupational therapy at home with the help of home health. DISCHARGE DISPOSITION AND PLAN: The patient will be discharged home today. The patient was instructed to take medications as per prescription. He was instructed to follow a low cholesterol, low carbohydrate, controlled diet. He was instructed to resume activities as tolerated. He was to instructed to follow up with his primary care physician in 2 weeks and if he does not have a primary care physician to please call Dr. Jake Rodriguez's office. He was instructed to please call 911 or go to the nearest emergency room if he has any speech disturbances, sudden onset of focal weakness, sudden onset of chest heaviness, or any other unusual signs or symptoms. The patient verbalized understanding of his discharge instructions. CONDITION AT DISCHARGE: Stable. DISCHARGE MEDICATIONS 1. Aspirin 81 mg p.o. daily. 2. Atorvastatin 80 mg p.o. daily. 3. NovoLog insulin 5 units subcutaneously with meals. 4. Lantus insulin 40 units subcutaneously daily at 1999. 5. Lisinopril 10 mg p.o. daily. 6. Metformin 500 mg p.o. b.i.d. with meals. 7. Metoprolol tartrate 50 mg p.o. b.i.d. PERTINENT LABORATORY AND DIAGNOSTIC DATA: 1. 2D echocardiogram: Left ventricle is normal in size with moderately reduced systolic function. There is global hypokinesis. Estimated left ventricular ejection fraction of 40 to 45%. 2. Brain CT scan upon admission: No acute intracranial process. 3. Brain MRI: Acute left thalamic lacunar infarct. Minimal chronic small vessel ischemic changes. 4. Neck CTA. No significant stenosis or occlusion of the major cervical intracranial arteries. No dissection, aneurysm, or vascular malformation. 5. Chest x-ray upon admission: Normal chest radiograph. 6. Latest CBC: WBC 8.6, hemoglobin 14.3, hematocrit 42.5, platelet count 265. 7. Latest BMP: Sodium 140, potassium 3.6, chloride 102, carbon dioxide 30, anion gap 12, BUN 16, creatinine 0.75, glucose 180, calcium 9.1. 8. Hemoglobin A1c 8.3. 9. Fasting lipid panel: Triglycerides 64, total cholesterol 160, LDL 107, HDL 40. At this time, I would like to thank Dr. Martínez Hall for seeing the patient and providing clinical recommendations. The case and management of this patient was fully discussed with Dr. Whaley. Approximately 40 minutes was spent coordinating the discharge of this patient. Discharge instructions were provided in the presence of the patient's daughter. ALFIE WHALEY MD, AM/JACQUELINE Conf#: [id number] DID#: [id number]
[2016-12-10] MEDS ORDERED: metFORMIN 500 MG TAB PO SCH (18:05)
== END 2016-12-10 17:27 | disposition home health service (06) | DRG 65 ==
LOC: E/R 19:47 → MS4 22:12 → UNDOADMOB 22:12 → MS4 22:13 → OBSVTOIN 12-08 13:48
PROVIDERS: ADMIT Internal Medicine; ATTEND Internal Medicine
DX: I63.8 Other cerebral infarction (principal); G81.91 Hemiplegia, unspecified affecting right dominant side; I42.9 Cardiomyopathy, unspecified; I16.0 Hypertensive urgency; I10 Essential (primary) hypertension; E11.65 Type 2 diabetes mellitus with hyperglycemia; E78.5 Hyperlipidemia, unspecified; E66.9 Obesity, unspecified; Z68.31 Body mass index [BMI] 31.0-31.9, adult; Z91.14 Patient's other noncompliance with medication regimen
CPT/HCPCS: 36415; 70450; 70496; 70498; 70551; 71010; 80048; 80053; 80061; 82962; 83036; 83735; 84484; 85025; 85610; 85730; 92610; 93005; 93306; 97116; 97163; 97166; 97530; G0378; J0360; J1650; J1815; J7030; Q9967

== ENCOUNTER 2016-12-16 15:47 | Outpatient (CLI) | payer OTHER ==
[~2016-12-16] VITALS: Ht 165.1 cm; Wt 82.7 kg
[~2016-12-16 15:47] MED LIST: 3N1 COMMODE MC; ASPI-664 PO; ATOR80TA75 PO; LANT3I SC; LISI10TA2 PO; METF500T PO; METO-429 PO; NOVO3I SC
[2016-12-16 15:50] VITALS: BP 140/77; PULSE 75; RESP 16; Ht 165.1 cm; Wt 82.7 kg
--- NOTE | 2016-12-16 16:23 | PN ---
Date/Time of Note Date/Time of Note DATE: 12/16/16 TIME: 16:18 Outpatient Progress Note Chief Complaint TIA/hypertension/diabetes/rheumatoid arthritis HPI TIA/patient was recently admitted with a TIA, patient has no headache dizziness , no local focal weakness, no fall, Hypertension/no headache or dizziness or lightheadedness, patient blood pressure slightly elevated, and family brought the blood pressure reading, slightly elevated, but there way of taking the blood pressure was not appropriate, so discussed with the family, Diabetes/no pleuritic supple due to hypoglycemia, gastroparesis, Rheumatoid arthritis/patient has rheumatoid arthritis, joint pain, difficulty in making fist especially on the left hand, Review of Systems Const: No Fever, no chills, no Wt. loss, no Fatigue, normal appetite, no diaphoresis. Eyes: No pain, no discharge, no redness, no visual change, no foreign body. ENT: No pain, no bleeding, no congestion, no sore throat, no dysphagia, no discharge or rhinitis. Lymph: No adenopathy, no tender nodes, no lymphedema. Resp: No SOB, no cough, no sputum, no wheezing, no chest pain. CV: No chest pain, no palpitaions, no AGUILERA, no PND, no edema. GI: Normal appetite, no pain, no nausea, no vomiting, no diarrhea, no blood, no constipation. : No frequency, no urgency, no dysuria, no hematuria, no flank pain, no discharge, no bleeding. Musc: Slight low back pain, no neck pain, no knee pain, no restricted ROM. Unable to make a fist especially on her right hand, Skin: No rash, no skin lesions, no erythema, no laceration, no bruising, no pruritus. Neuro: No CAMEJO, no dizziness, no syncope, no seizure, no focal-weakness. Endo: No polyuria, no polydypsia, no dry-skin, no temp-intolerance. Psych: No hallucinations, no depression, no anxiety, no suicidal ideation. Ext: No edema, no pain, no ulcer, no weakness stiffness of joint, Physical Exam Vital Signs Date Time Temp Pulse Resp B/P Pulse Ox O2 Delivery O2 Flow Rate FiO2 12/16/16 15:50 98.0 75 16 140/77 98 Room Air General Appearance: A 56 year-old male who appears well-developed, well- nourished, in no acute distress. HEENT: Head normocephalic, atraumatic. Pupils equal, round, reactive to light and accommodate. Sclerae are no jaundice. Nasal turbinates pink without erythema or nasal discharge. Mucous membranes pink and moist without lesions. Oropharynx clear without any exudate or discharge. NECK: Supple. Trachea midline, No thyromegaly, No cervical lymphadenopathy, No mass, No carotid bruits, No JVD, Carotid pulses 2+ bilaterally. PULMONARY: Clear to auscultaion bilaterally, No retractions, Chest expansion symmetric bilaterally, no rales, no ronchi, no dulness on percussion. CARDIAC: Normal SI and S2, Regular rate and rythm, no murmur, gallop, or rub. GASTROINTESTINAL: Abdomen is soft, non-tender, Non Rigid, No distention, Positive bowel sounds x4 quadrants, Liver normal. SKIN: Warm, dry, no rash, no bruise, no echmosis. EXTREMITIES: Bilateral lower extremities normal, no edema, no phlabitus, pulse palpable, no contracture. Unable to make a fist especially on the right hand, MUSCULOSKELETAL: Spine Normal, Non-tender, Normal range of motion, No swelling, no deformity, no clubbing, or cyanosis, the patient has no edema to bilateral lower extremities, dorsalis pedis pulses palpable bilaterally. NEUROLOGIC: The patient is awake, alert, oriented, responding to yes/no questions appropriately, moving all extremities, cranial nerve intact, normal strenght, normal power, normal coordination, normal gait. Allergies Coded Allergies: No Known Allergy (Unverified , 12/06/16) PMH TIA/hypertension/diabetes/rheumatoid arthritis Social Hx No smoking no drinking, Family Hx Noncontributory Assessment/Plan Impression TIA/hypertension/diabetes/hyperlipidemia/cardiomegaly/rheumatoid arthritis Plan Patient education done about diabetes and hypertension, and risk explained, if not control lead to , Patient encouraged to follow with the primary care physician, Patient does not have Lantus insulin yet, patient told go to another pharmacy, another prescription given, Patient's Lantus unit is 14 units daily, and not 40 units which was on not discharge paper, Patient to follow with the primary care physician enough couple of weeks, check blood sugar and cholesterol, patient does have cholesterol medicine, and patient is taking it, Medications Home Meds Active Scripts 3 N 1 Commode* (3 N 1 Commode*) 1 Each Dme, 1 EACH [facility] DIRECTED, #1 DME 0 Refills Prov:ALFIE HORNE NP 12/10/16 Insulin Aspart* (Novolog Insulin Pen*) 100 Unit/Ml Soln, 5 UNIT SC WITH MEALS for 30 Days Prov:ALFIE HORNE NP 12/10/16 Metformin Hcl (Glucophage) 500 Mg Tablet, 500 MG PO BID WITH MEALS for 30 Days, TAB Prov:ALFIE HORNE NP 12/10/16 Insulin Glargine* (Lantus*) 100 Unit/Ml Soln, 14 UNIT SC DAILY@20 for 30 Days Prov:ALFIE HORNE NP 12/10/16 Aspirin* (Aspirin* EC) 81 Mg Tablet.dr, 81 MG PO DAILY for 30 Days Prov:ALFIE HORNE NP 12/10/16 Metoprolol Tartrate* (Lopressor*) 50 Mg Tab, 50 MG PO BID for 30 Days, TAB Prov:ALFIE HORNE NP 12/10/16 Lisinopril* (Lisinopril*) 10 Mg Tablet, 10 MG PO DAILY for 30 Days, TAB Prov:ALFIE HORNE NP 12/10/16 Atorvastatin* (Atorvastatin*) 80 Mg Tablet, 80 MG PO DAILY@21 for 30 Days, TAB Prov:ALFIE HORNE NP 12/10/16 KEVIN TOLLIVER MD Dec 16, 2016 16:23
== END 2016-12-16 16:58 | disposition home or self-care (01) ==
LOC: DCC 15:47
PROVIDERS: ATTEND Internal Medicine
DX: G45.9 Transient cerebral ischemic attack, unspecified (principal); I10 Essential (primary) hypertension; E11.9 Type 2 diabetes mellitus without complications; M06.9 Rheumatoid arthritis, unspecified

== ENCOUNTER 2016-12-30 15:02 | Outpatient (CLI) | payer OTHER ==
[~2016-12-30] VITALS: Ht 165.1 cm; Wt 81.4 kg
[2016-12-30 15:06] VITALS: BP 150/83; PULSE 62; RESP 18; Ht 165.1 cm; Wt 81.4 kg
--- NOTE | 2016-12-30 15:47 | PN ---
Date/Time of Note Date/Time of Note DATE: 12/30/16 TIME: 15:44 Outpatient Progress Note Chief Complaint Dogbite/left hand swelling HPI No bright/patient had dogbite, patient was hospitalized, patient has been taking medication, patient was seen by infectious disease, and patient was also seen by plastic today, Left hand swelling/patient has slight swelling of the left hand, patient was dangling the hand, patient advised to elevate the hand, minimal discomfort, Review of Systems Const: [No Fever, no chills, no Wt. loss, no Fatigue, normal appetite, no diaphoresis.] Eyes: [No pain, no discharge, no redness, no visual change, no foreign body.] ENT: [No pain, no bleeding, no congestion, no sore throat, no dysphagia, no discharge or rhinitis.] Lymph: [No adenopathy, no tender nodes, no lymphedema.] Resp: [No SOB, no cough, no sputum, no wheezing, no chest pain.] CV: [No chest pain, no palpitaions, no AGUILERA, no PND, no edema.] GI: [Normal appetite, no pain, no nausea, no vomiting, no diarrhea, no blood, no constipation.] : [No frequency, no urgency, no dysuria, no hematuria, no flank pain, no discharge, no bleeding.] Musc: [No bone/joint pain, no back pain, no neck pain, no knee pain, no restricted ROM.] Skin: [No rash, no skin lesions, no erythema, no laceration, no bruising, no pruritus.] Neuro: [No CAMEJO, no dizziness, no syncope, no seizure, no focal-weakness.] Endo: [No polyuria, no polydypsia, no dry-skin, no temp-intolerance.] Psych: [No hallucinations, no depression, no anxiety, no suicidal ideation.] Ext: [ left hand,, no phlebitis, no ulcer, Physical Exam Vital Signs Date Time Temp Pulse Resp B/P Pulse Ox O2 Delivery O2 Flow Rate FiO2 12/30/16 15:06 98.0 62 18 150/83 99 Room Air General Appearance: A [56] year-old male [who appears well-developed, well- nourished, in no acute distress.] HEENT: [Head normocephalic, atraumatic. Pupils equal, round, reactive to light and accommodate. Sclerae are no jaundice. Nasal turbinates pink without erythema or nasal discharge. Mucous membranes pink and moist without lesions. Oropharynx clear without any exudate or discharge.] NECK: [Supple. Trachea midline, No thyromegaly, No cervical lymphadenopathy, No mass, No carotid bruits, No JVD, Carotid pulses 2+ bilaterally.] PULMONARY: [Clear to auscultaion bilaterally, No retractions, Chest expansion symmetric bilaterally, no rales, no ronchi, no dulness on percussion.] CARDIAC: [Normal SI and S2, Regular rate and rythm, no murmur, gallop, or rub.] GASTROINTESTINAL: [Abdomen is soft, non-tender, Non Rigid, No distention, Positive bowel sounds x4 quadrants, Liver normal.] SKIN: [Warm, dry, no rash, no bruise, no echmosis.] EXTREMITIES: [Bilateral lower extremities normal, no edema, no phlabitus, pulse palpable, no contracture.] MUSCULOSKELETAL: [Spine Normal, Non-tender, Normal range of motion, No swelling , no deformity, no clubbing, or cyanosis, the patient has no edema to bilateral lower extremities, dorsalis pedis pulses palpable bilaterally.] NEUROLOGIC: [The patient is awake, alert, oriented, responding to yes/no questions appropriately, moving all extremities, cranial nerve intact, normal strenght, normal power, normal coordination, normal gait.] Allergies Coded Allergies: No Known Allergy (Unverified , 12/06/16) PMH Dogbite Social Hx No change Family Hx No change Assessment/Plan Impression Dogbite/left hand edema Plan Patient was seen by plastic today, patient finished antibiotic, patient doing very well, Patient has left and swelling, patient was dangling hand, is much better Patient has minimal discomfort, patient advised to elevate the hand, Patient advised to follow with the primary care physician,, Medications Home Meds Active Scripts 3 N 1 Commode* (3 N 1 Commode*) 1 Each Dme, 1 EACH [facility] DIRECTED, #1 DME 0 Refills Prov:ALFIE HORNE NP 12/10/16 Insulin Aspart* (Novolog Insulin Pen*) 100 Unit/Ml Soln, 5 UNIT SC WITH MEALS for 30 Days Prov:ALFIE HORNE NP 12/10/16 Metformin Hcl (Glucophage) 500 Mg Tablet, 500 MG PO BID WITH MEALS for 30 Days, TAB Prov:ALFIE HORNE NP 12/10/16 Insulin Glargine* (Lantus*) 100 Unit/Ml Soln, 14 UNIT SC DAILY@20 for 30 Days Prov:ALFIE HORNE NP 12/10/16 Aspirin* (Aspirin* EC) 81 Mg Tablet.dr, 81 MG PO DAILY for 30 Days Prov:ALFIE HORNE NP 12/10/16 Metoprolol Tartrate* (Lopressor*) 50 Mg Tab, 50 MG PO BID for 30 Days, TAB Prov:ALFIE HORNE NP 12/10/16 Lisinopril* (Lisinopril*) 10 Mg Tablet, 10 MG PO DAILY for 30 Days, TAB Prov:ALFIE HORNE NP 12/10/16 Atorvastatin* (Atorvastatin*) 80 Mg Tablet, 80 MG PO DAILY@21 for 30 Days, TAB Prov:ALFIE HORNE NP 12/10/16 KEVIN TOLLIVER MD Dec 30, 2016 15:47
== END 2016-12-30 16:26 | disposition home or self-care (01) ==
LOC: DCC 15:02
PROVIDERS: ATTEND Internal Medicine
DX: S61.452D Open bite of left hand, subsequent encounter (principal); W54.0XXD Bitten by dog, subsequent encounter; R22.31 Localized swelling, mass and lump, right upper limb
CPT/HCPCS: G0463